=== PATIENT | female | born 1995 | race Caucasian/White ===

== ENCOUNTER 2016-04-13 06:08 | Inpatient (IN) | payer OTHER, MEDICAID ==
[~2016-04-13 06:08] MED LIST: Buffered Lidocaine 1% SYR 3ML* 3 ML/SYR SYRINGE INTRADERM ONE; Famotidine IV* 10 MG/ML 2 ML (20 mg) IV ONE
[2016-04-13] MEDS ORDERED: ceFOXitin 2 GM IVPREMIX* 2 GM/50 ML BAG ONE (06:57)
[2016-04-13] MEDS: Sodium Citrate/Citric Acid* 15 ML UDC PO ONE ×2 (07:02→11:41)
[2016-04-13] MEDS ORDERED: Phenylephrine IV* 40 MCG/ML 10 ML SYRINGE ONE (07:43)
[2016-04-13] MEDS ORDERED: Dexamethasone IV* 4 MG/ML 1 ML (4 MG) ONE (07:44)
[2016-04-13] MEDS ORDERED: OXYTOCIN* 10 UNITS/ML 1 ML VIAL ONE ×2 (07:44→12:33)
[2016-04-13] MEDS ORDERED: Ondansetron INJ* 2 MG/ML VIAL ONE (07:44)
[2016-04-13] MEDS ORDERED: Morphine PF AMP (0.5MG/ML)* 5 MG/10 ML AMP ONE (11:27)
[2016-04-13] MEDS ORDERED: Sodium Citrate/Citric Acid* 15 ML UDC ONE (11:39)
[2016-04-13] MEDS ORDERED: Ondansetron INJ* 2 MG/ML VIAL IV PRN (12:42)
[2016-04-13] MEDS ORDERED: fentaNYL* 50 MCG/ML 2 ML VIAL (100 MCG VIAL) IV PRN (12:42)
[2016-04-13] MEDS ORDERED: Naloxone* 0.4 MG/ML 1 ML VIAL IV PRN (12:42)
[2016-04-13] MEDS ORDERED: Ketorolac INJ* 30 MG/ML 1 ML VIAL IV PRN (12:42)
[2016-04-13] MEDS ORDERED: Nalbuphine* 20 MG/ML 1 ML VIAL IV PRN ×2 (12:42)
[2016-04-13] MEDS ORDERED: oxyCODONE/Acetamin 5/325 MG* TAB PO PRN ×2 (12:42)
[2016-04-13] MEDS: Ibuprofen TAB* 600 MG PO SCH ×2 (15:30→20:28)
[2016-04-13] MEDS ORDERED: Dibucaine 1% 28.35 GM TUBE PR PRN (19:45)
[2016-04-13] MEDS ORDERED: Witch Hazel PAD* JAR TOPICAL PRN (19:45)
[2016-04-13] MEDS ORDERED: Measles, Mumps,Rubella VACC* 0.5 ML/VIAL SUBCUT ONE (19:45)
[2016-04-13] MEDS: Docusate CAP* 100 MG PO SCH (20:27)
[2016-04-13] MEDS: Simethicone TAB* 80 MG TAB.CHEW PO SCH (20:28)
[2016-04-14] MEDS: Ibuprofen TAB* 600 MG PO SCH ×5 (02:45→22:04)
[2016-04-14] MEDS ORDERED: oxyCODONE/Acetamin 5/325 MG* TAB PO PRN (04:00)
--- NOTE | 2016-04-14 04:15 | OP ---
DATE OF OPERATION: 04/13/16 - ROOM #[id number] DATE OF : [birth year] SURGEON: Darrin Dominguez MD NUT ORCHARDIST: Kalani Montes CNM ANESTHESIOLOGIST: Dr. Pride. ANESTHESIA: Spinal. PRE-OP DIAGNOSIS: 39 plus 0 weeks' gestation with breech fetus. POST-OP DIAGNOSIS: 39 plus 0 weeks' gestation with breech fetus. OPERATIVE PROCEDURE: Primary low transverse section. ESTIMATED BLOOD LOSS: 700 cc. URINE OUTPUT: 600 cc. IV FLUIDS: 3300 cc lactated Ringer's. MATERIALS TO LAB: Cord blood. INDICATIONS: This patient was a 20-year-old 1, para 0, who was noted a few weeks ago to have a fetus in the persistent breech presentation. The patient underwent an external cephalic version attempt, but this was unsuccessful. She has been scheduled for a primary section. She was extensively counseled and consent was signed. FINDINGS: Normal-appearing uterus, fallopian tubes, and ovaries. Delivery was productive of a male infant weighing 7 pounds 3 ounces with Apgars of 9 and 9. The infant was in the andres breech presentation. Time of delivery was 12:33. COMPLICATIONS: None. DESCRIPTION OF PROCEDURE: The risks, benefits, and alternatives were described to the patient and informed consent was obtained. The patient was taken to the operating room with IV running where spinal anesthesia was induced and found to be adequate. The patient was prepped and draped in the normal sterile fashion in the dorsal supine position with leftward tilt. A Pfannenstiel skin incision was made with a scalpel and this was carried down to the underlying fascia sharply. The fascia was then scored in the midline with the scalpel. The incision was extended using Amado scissors. The rectus muscles were dissected off the rectus fascia using blunt and sharp dissection. The rectus muscles were in the midline bluntly. The peritoneum was also entered bluntly. A bladder blade was placed. A bladder flap was created sharply using Metzenbaum scissors. A low transverse uterine incision was made with the scalpel. This was carried down slowly and there was no apparent fluid on entering the cavity. The incision was extended with blunt traction. The breech was quite wide, so the skin incision was extended with the scalpel. The breech was then delivered through the incision. With fundal pressure, the body was brought down until the body could be grasped. Each leg was flexed and delivered. The body was then wrapped with a moistened towel. With rotational motions, each shoulder delivered and then both arms were swept down and out. The head was then delivered in a flexed position. The had an excellent tone and cried immediately on delivery. The cord was doubly clamped and cut. The infant was then handed to the awaiting financial aid coordinator. Cord blood was collected. The placenta then delivered with manual extraction. The uterus was then exteriorized and cleared of all clots and debris. The uterine incision was reapproximated using 0 Polysorb in a running-locked fashion. A second layer of imbricating sutures of 0 Polysorb was also placed with good hemostasis. The posterior cul-de-sac was irrigated with saline. The uterus was then returned to the abdomen, and the incision was reinspected and noted to be hemostatic. The peritoneum was closed with 3-0 Polysorb in a running fashion. The fascia was closed with 0 Polysorb in a running fashion. Subcutaneous tissues were reapproximated using 3-0 Polysorb in interrupted stitches. The skin was then closed with 4-0 Monocryl in a subcuticular stitch. Mastisol and Steri-Strips were placed over the incision which was then covered with a sterile bandage. The patient tolerated the procedure well. Sponge, lap, and needle counts were correct x2. [id number] #: [id number] [facility]
[2016-04-14] MEDS: oxyCODONE/Acetamin 5/325 MG* TAB PO PRN ×3 (04:43→18:41)
[2016-04-14 07:22] LABS: Hematocrit 27 % (35-47); Hemoglobin 9.1 g/dl (12.0-16.0); Mean Corpuscular HGB Conc 33 g/dl (31-36); Mean Corpuscular Hemoglobin 31 pg (27-31); Mean Corpuscular Volume 91 fL (80-97); Mean Platelet Volume 12 um3 (7.4-10.4); Red Blood Count 2.98 10^6/ul (4.0-5.4); Red Cell Distribution Width 14 % (10.5-15); White Blood Count 13.9 10^3/ul (3.5-10.8)
[2016-04-14] MEDS: Simethicone TAB* 80 MG TAB.CHEW PO SCH ×4 (08:41→22:04)
[2016-04-14] MEDS: Docusate CAP* 100 MG PO SCH ×3 (08:41→22:04)
[2016-04-14] MEDS ORDERED: Ferrous Gluconate TAB* 324 MG TAB ONE (21:40)
[2016-04-14] MEDS: Ferrous Gluconate TAB* 324 MG TAB PO SCH (22:16)
[2016-04-15] MEDS: Ibuprofen TAB* 600 MG PO SCH ×3 (04:33→18:14)
[2016-04-15] MEDS: Docusate CAP* 100 MG PO SCH ×3 (09:39→22:20)
[2016-04-15] MEDS: Ferrous Gluconate TAB* 324 MG TAB PO SCH ×2 (09:41→22:20)
[2016-04-15] MEDS: Simethicone TAB* 80 MG TAB.CHEW PO SCH ×3 (09:41→18:10)
[2016-04-16] MEDS: Ibuprofen TAB* 600 MG PO SCH ×2 (00:42→09:04)
[2016-04-16] MEDS: oxyCODONE/Acetamin 5/325 MG* TAB PO PRN (01:49)
[2016-04-16 08:17] VITALS: BP 107/61
[2016-04-16] MEDS: Simethicone TAB* 80 MG TAB.CHEW PO SCH (09:04)
[2016-04-16] MEDS: Ferrous Gluconate TAB* 324 MG TAB PO SCH (09:04)
[2016-04-16] MEDS: Docusate CAP* 100 MG PO SCH (09:04)
--- NOTE | 2016-04-16 09:43 | PTEDU ---
Patient Name: LILY NEELY AUBRIELILY Brown selected video: Never Ever Shake a Baby to view on 04/16/2016 at 9:42:45 AM from [facility] [id number]
== END 2016-04-16 11:20 | disposition home or self-care (01) | DRG 540 ==
LOC: MCHOB 06:08
PROVIDERS: ADMIT Obstetrics & Gynecology; ATTEND Obstetrics & Gynecology
PROC: 10907ZC Drainage of Amniotic Fluid, Therapeutic from Products of Conception, Via Natural or Artificial Opening (ICD-10-PCS; 2016-04-13)
PROC: 10D00Z1 Extraction of Products of Conception, Low, Open Approach (ICD-10-PCS; principal; 2016-04-13 07:45)
DX: O32.1XX0 Maternal care for breech presentation, not applicable or unspecified (principal); O99.824 Streptococcus B carrier state complicating childbirth; Z3A.39 39 weeks gestation of pregnancy; Z37.0 Single live birth
CPT/HCPCS: 36415; 85025; 90707; A9270-GY; J0694; J1100; J2300; J2405; J2590

== ENCOUNTER 2018-03-20 16:34 | Emergency (ER) | payer MEDICAID, OTHER ==
--- OUTSIDE RECORDS SUMMARY | 2018-03-20 17:04 | XMS REPORT | Continuity of Care Document ---
:1995 External Reference #:[id number] Author Name VINNY Munoz Address [address] [place] [address], [address] [place] [address] Care Team Providers Name Role Phone Anahi Kirkpatrick M.D. Care Team Information Cloth Worker Unavailable Payers Date Identification Numbers Payment Provider Subscriber Policy Number: [id number] [facility] Arminda Huertas PayID: [id number] [address] [place] [address] Advance Directives Description No Information Available Problems Date Description Provider Status Onset: 01/10/2018 Congenital insufficiency of aortic valve VINNY Munoz Active Onset: 01/10/2018 Malaise and fatigue VINNY Munoz Active Onset: 03/20/2018 Acute pharyngitis VINNY Munoz Active Family History Date Family Member(s) Observation Comments Father 44 Father No Current Problems Mother 44 Mother No Current Problems First Brother Asthma First Brother 21 Second Brother Downs Second Brother 8 Social History Type Date Description Comments Sex Unknown Education Currently attending 1st year of college Marital Status Single lives with [place] and has a one year old. 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 Marital Status Significant Other Lives With Boyfriend Diet Healthy, Well Balanced Tobacco Use Start: Unknown Never Smoked Cigarettes Smoking Status Reviewed: 03/20/18 Never Smoked Cigarettes ETOH Use Denies alcohol use Tobacco Use Start: Unknown Patient has never smoked Currently Active Patient is currently sexually active Condom Use Occasionally Allergies, Adverse Reactions, Alerts Description No Known Drug Allergies Medications Medication Date Status Form Strength Qnty SIG Indications Ordering Provider Amoxicillin 03/20/ Active Tablets 875mg qs take one J02.9 Chichialison Marte2018 tablet ANP twice daily for 10 days Ibuprofen 00/00/ Active Tablets 200mg 1 by mouth Unknown 0000 every 6 hours as needed Pamprin 00/00/ Active Tablets 500-25-15m as Unknown Multi-Symptom 0000 g directed Trinessa (28) 00/ Hx Tablets 0.18/0.215 1 by mouth Unknown 0000 - /0.25 every day 01/09/ mg-35 mcg 2016 Depo-Provera / Hx Suspension 150mg/ml uad Unknown 0000 - 2017 Medications Administered in Office Medication Date Status Form Strength Qnty SIG Indications Ordering Provider Admin Of Administered Injection Injection/B Vaccine,One 018 P Schedule Vaccine Immunizations CPT Code Status Date Vaccine Lot # [id number] Given 01/10/2018 Flucelvax Quad, 0.5mL, [facility] [address]-02 [id number] Given 03/14/2016 Fluvirin 0.5 ML,[facility] 11387-243-39 [id number] U-Flu Given Unknown Influenza,Unspecified Vital Signs Date Vital Result Comment 03/20/2018 10:33am Weight 169.00 lb Height 65 inches 5'5" BP Systolic 118 mmHg BP Diastolic 78 mmHg Body Temperature 100.4 F Heart Rate 120 /min Respiratory Rate 18 /min BMI (Body Mass Index) 28.1 kg/m2 01/10/2018 9:26am Weight 177.00 lb Height 65 inches 5'5" BP Systolic 122 mmHg BP Diastolic 82 mmHg Body Temperature 98.5 F Heart Rate 100 /min O2 % BldC Oximetry 99 % At rest, Room Air BMI (Body Mass Index) 29.5 kg/m2 06/22/2017 2:45pm Weight 171.00 lb Height 65 inches 5'5" BP Systolic 130 mmHg BP Diastolic 70 mmHg Heart Rate 74 /min Respiratory Rate 16 /min BMI (Body Mass Index) 28.5 kg/m2 01/09/2017 9:07am Weight 171.00 lb Height 65 inches 5'5" BP Systolic 110 mmHg BP Diastolic 70 mmHg Heart Rate 76 /min Respiratory Rate 18 /min BMI (Body Mass Index) 28.5 kg/m2 03/14/2016 10:13am Weight 162.00 lb 8 mnths Height 65 inches 5'5" BP Systolic 120 mmHg BP Diastolic 76 mmHg Heart Rate 82 /min Respiratory Rate 16 /min BMI (Body Mass Index) 27.0 kg/m2 02/22/2015 3:13pm Weight 143.12 lb Height 65 inches 5'5" BP Systolic 98 mmHg BP Diastolic 64 mmHg Body Temperature 98.0 F Heart Rate 60 /min manual Respiratory Rate 16 /min BMI (Body Mass Index) 23.8 kg/m2 Results Test Date Facility Test Result H/L Range Note Comprehensive Panel 01/10/2018 [facility] Sodium 138 mmol/L 136-[address] [place] [address] [phone] Potassium 4.4 mmol/L 3.5-5.2 Chloride 105 mmol/L 100-108 Co2 25 mmol/L 21-32 Glucose 81 mg/dL 70-100 BUN 8 mg/dL 7-21 Creatinine 0.7 mg/dL 0.6-1.3 1 Calcium 9.8 mg/dL 8.5-10.8 GFR >60 T Bili 0.4 mg/dL 0.0-1.2 T Protein 8.3 gm/dL High 6.4-8.2 Albumin 4.8 gm/dL 3.4-4.8 Alk Phos 90 U/L 40-150 Alt (SGPT) 21 U/L 0-55 Ast (Sgot) 18 U/L 5-37 Laboratory test 01/10/2018 [facility] A1c 5.1 % 4.8-6.[address] [place] [address] [phone] Iron Saturation 01/10/2018 [facility] Iron 75 g/dL 50- [address] [place] [address] [phone] Uibc 277 g/dL 112-346 Iron Saturation 21 % Low 22-55 CBC W/Auto Differential 01/10/2018 [facility] WBC 8.9 K/uL 4.8-10.[address] [place] [address] 13495 [phone] RBC 4.47 M/uL 4.20-5.40 Hemoglobin 13.4 gm/dL 12.0-16.0 Hematocrit 40.5 % 36.0-48.0 MCV 90.6 fL 80.0-100.0 MCHC 33.1 % 30.0-36.5 MCH 29.9 pg 27.0-34.0 RDW 11.7 % 11.0-15.0 Platelet 230 K/uL 130-450 MPV 9.2 fL 6.0-12.0 NE% 61 % 37-80 Ly% 30 % 10-50 Mo% 9 % 0-12 Eo% 1 % <=8 Ba% 0 % <=3 NE# 5.4 K/uL 1.8-8.6 Lymph# 2.6 K/uL 0.5-5.0 [place]# 0.8 K/uL 0.0-1.3 Eos# 0.1 K/uL 0.0-0.9 Baso# 0.0 K/ul 0.0-0.3 Thy (TSH And Free 06/22/2017 [facility] TSH 1.08 uIU/mL 0.34-4.82 T4) [address] [place] [address] [phone] T4 - Free 0.93 ng/dL 0.77-1.60 Comprehensive Panel 06/22/2017 [facility] Sodium 136 mmol/L 136-[address] [place] [address] 10879 [phone] Potassium 3.7 mmol/L 3.5-5.2 Chloride 104 mmol/L 100-108 Co2 22 mmol/L 21-32 Glucose 82 mg/dL 70-100 BUN 14 mg/dL 7-21 Creatinine 0.8 mg/dL 0.6-1.3 2 Calcium 9.7 mg/dL 8.5-10.8 GFR >60 T Bili 0.4 mg/dL 0.0-1.2 T Protein 7.9 gm/dL 6.4-8.2 Albumin 4.6 gm/dL 3.4-4.8 Alk Phos 96 U/L 40-150 Alt (SGPT) 39 U/L 0-55 Ast (Sgot) 27 U/L 5-37 CBC W/Auto Differential 06/22/2017 [facility] WBC 8.8 K/uL 4.8-10.[address] [place] [address]395 [phone] RBC 4.12 M/uL Low 4.20-5.40 Hemoglobin 12.5 gm/dL 12.0-16.0 Hematocrit 36.8 % 36.0-48.0 MCV 89.4 fL 80.0-100.0 MCHC 34.0 % 30.0-36.5 MCH 30.4 pg 27.0-34.0 RDW 12.2 % 11.0-15.0 Platelet 203 K/uL 130-450 MPV 9.6 fL 6.0-12.0 NE% 61 % 37-80 Ly% 30 % 10-50 Mo% 8 % 0-12 Eo% 1 % <=8 Ba% 1 % <=3 NE# 5.3 K/uL 1.8-8.6 Lymph# 2.6 K/uL 0.5-5.0 [place]# 0.7 K/uL 0.0-1.3 Eos# 0.1 K/uL 0.0-0.9 Baso# 0.0 K/ul 0.0-0.3 1 Normal Kidney Function or Mild Disease - GFR >OR=60 Chronic Kidney Disease - GFR 15-59 Renal Failure - GFR < 15 GFR not calculated on patients under 18 years of age. 2 Normal Kidney Function or Mild Disease - GFR >OR=60 Chronic Kidney Disease - GFR 15-59 Renal Failure - GFR < 15 GFR not calculated on patients under 18 years of age. Procedures Description No Information Available Encounters Type Date Location Provider Dx Diagnosis Office Visit 01/10/2018 Main Office VINNY Munoz Q23.1 Congenital insufficiency 9:00a of aortic valve R53.1 Weakness Office Visit 06/22/2017 2:45p Main Office Anahi Kirkpatrick, R63.5 Abnormal weight M.D. gain R53.83 Other fatigue Z30.09 Encounter for ot general coun and advice on contraception Office Visit 01/09/2017 9:20a Main Office Angie Wright, R22.42 Localized RN, WATERSHED COORDINATOR swelling, mass and lump, left lower limb Office Visit 03/14/2016 10:00a Main Office Anahi Kirkpatrick Z00.00 Encntr for general M.D. adult medical exam w/o abnormal findings Office Visit 02/22/2015 3:15p Main Office Anahi Kirkpatrick Z00.00 Encntr for general M.D. adult medical exam w/o abnormal findings Plan of Treatment 03/20/2018 - VINNY MunozJ02.9 Acute pharyngitis, unspecifiedNew Medication: Amoxicillin 875 mg - take one tablet twice daily for 10 daysComments:take medications as prescribed, drink plenty of fluids. Seek immediate medical attention if condition worsens, ie. increased shortness of breathFollow up: January 2019 for annual visit.Z71.3 Dietary counseling and surveillanceComments :Given dietary counseling and appointment with cpo.
[2018-03-20] MEDS ORDERED: NS 0.9% 1000 ML** 1,000 ML IV ONE ×2 (18:11→19:47)
[2018-03-20 18:50] LABS: ABS Basophils 0 10^3/ul (0-0.2); ABS Eosinophils 0 10^3/ul (0-0.6); ABS Lymphocytes 1.2 10^3/ul (1.0-4.8); ABS Monocytes 0.9 10^3/ul (0-0.8); ABS Neutrophils 6.9 10^3/ul (1.5-7.7); ABS Nucleated RBC 0 10^3/ul; Eosinophil % 0 %; Hematocrit 39 % (35-47); Lymphocyte % 13.1 %; Mean Corpuscular HGB Conc 34 g/dl (31-36); Mean Corpuscular Hemoglobin 30 pg (27-31); Mean Corpuscular Volume 89 fL (80-97); Mean Platelet Volume 10.1 fL (7.4-10.4); Nucleated Red Blood Cells % 0; Platelet Count 170 10^3/ul (150-450); Red Blood Count 4.31 10^6/ul (4.00-5.40); Red Cell Distribution Width 14 % (10.5-15)
--- NOTE | 2018-03-20 18:58 | ED ---
Throat Pain/Nasal Congestion - HPI Summary HPI Summary: 22-year-old female presents with 2 day history of fever, chills, sore throat, and mild shortness of breath with exertion. Symptoms associated with some mild nasal congestion. Patient reports that her child was diagnosed 2 weeks ago with flu. She was evaluated by her primary care provider earlier today and was noted to have a mildly elevated heart rate. A rapid strep test was performed and patient reports was negative. Patient states that she was not tested for flu. Denies ear pain, dysphagia, drooling, chest pain, palpitations, cough, wheezing, abdominal pain, nausea, vomiting, or diarrhea. - History of Current Complaint Chief Complaint: EDThroatPain Time Seen by Provider: 03/20/18 17:49 Hx Obtained From: Patient - Allergies/Home Medications Allergies/Adverse Reactions: Allergies Allergy/AdvReac Type Severity Reaction Status Date / Time No Known Allergies Allergy Verified 03/20/18 18:07 Home Medications: Home Medications NK [No Home Medications Reported] 03/20/18 [History Confirmed 03/20/18] PMH/Surg Hx/FS Hx/Imm Hx Previously Healthy: Yes Endocrine/Hematology History: Denies: Hx Diabetes, Hx Thyroid Disease Cardiovascular History: Reports: Hx Valvular Heart Disease - bicuspid aortic valve Denies: Hx Hypertension Respiratory History: Denies: Hx Asthma History: Denies: Hx Kidney Infection, Other Problems/Disorders Psychiatric History: Denies: Hx Anxiety, Hx Depression, Other Psychiatric Issues/Disorders Infectious Disease History: No Infectious Disease History: Denies: Traveled Outside the [place] in Last 30 Days - Social History Alcohol Use: Occasionally Alcohol Amount: admits to drinking 2-3 beers/week prior to . Quit w/ . Substance Use Type: Reports: None Smoking Status (MU): Never Smoked Tobacco Have You Smoked in the Last Year: No Review of Systems Positive: Fever, Chills, Fatigue Negative: Drainage, Erythema Positive: Sore Throat. Negative: Ear Ache, Nasal Discharge Negative: Palpitations, Chest Pain Positive: Shortness Of Breath. Negative: Cough Negative: Abdominal Pain, Vomiting, Diarrhea, Nausea Positive: no symptoms reported Musculoskeletal: Negative Skin: Negative Neurological: Negative All Other Systems Reviewed And Are Negative: Yes Physical Exam - Summary Physical Exam Summary: GENERAL APPEARANCE: Well developed, well nourished, alert and cooperative, and appears to be in no acute distress. EYES: Conjunctiva clear. No discharge. Vision is grossly intact. EARS: External auditory canals and tympanic membranes clear, hearing grossly intact. NOSE: Mild nasal congestion. No nasal discharge. THROAT: Pharyngeal erythema. 2+ tonsils with exudate. Uvula midline. Airway patent. Oral cavity normal. Teeth and gingiva in good general condition. NECK: Neck supple. Anterior cervical lymphadenopathy with mild tenderness. CARDIAC: Normal S1 and S2. No S3, S4 or murmurs. Rhythm is regular. There is no peripheral edema, cyanosis or pallor. Extremities are warm and well perfused. Capillary refill is less than 2 seconds. LUNGS: Clear to auscultation without rales, rhonchi, wheezing or diminished breath sounds. ABDOMEN: Positive bowel sounds. Soft, nondistended, nontender. No guarding or rebound. No masses or hepatosplenomegally. MUSKULOSKELETAL: ROM intact to all extremities. No joint erythema or tenderness. Normal muscular development. Normal gait. SKIN: Skin normal color, texture and turgor with no lesions or eruptions. Triage Information Reviewed: Yes Vital Signs On Initial Exam: Initial Vitals Temp Pulse Resp BP Pulse Ox 99.7 F 125 18 131/86 98 03/20/18 16:47 03/20/18 16:47 03/20/18 16:47 03/20/18 16:47 03/20/18 16:47 Vital Signs Reviewed: Yes Diagnostics - Vital Signs Vital Signs Temp Pulse Resp BP Pulse Ox 03/20/18 16:47 99.7 F 125 18 131/86 98 - Laboratory Lab Results: Lab Results 03/20/18 Range/Units 18:39 WBC 9.0 (3.5-10.8) 10^3/ul RBC 4.31 (4.00-5.40) 10^6/ul Hgb 13.0 (12.0-16.0) g/dl Hct 39 (35-47) % MCV 89 (80-97) fL MCH 30 (27-31) pg MCHC 34 (31-36) g/dl RDW 14 (10.5-15) % Plt Count 170 (150-450) 10^3/ul MPV 10.1 (7.4-10.4) fL Neut % (Auto) 76.4 % Lymph % (Auto) 13.1 % [place] % (Auto) 10.3 % Eos % (Auto) 0 % Baso % (Auto) 0.2 % Absolute Neuts (auto) 6.9 (1.5-7.7) 10^3/ul Absolute Lymphs (auto) 1.2 (1.0-4.8) 10^3/ul Absolute Monos (auto) 0.9 H (0-0.8) 10^3/ul Absolute Eos (auto) 0 (0-0.6) 10^3/ul Absolute Basos (auto) 0 (0-0.2) 10^3/ul Absolute Nucleated RBC 0 10^3/ul Nucleated RBC % 0 Result Diagrams: 03/20/18 18:39 Lab Statement: Any lab studies that have been ordered have been reviewed, and results considered in the medical decision making process. - EKG No standard instances Cardiac Rate: Tachycardia - Rate 103 EKG Rhythm: Sinus Tachycardia ST Segment: Normal Summary of EKG Findings: Sinus tachycardia at rate of 103. No ectopy, SHYAM. No previous for comparison. Re-Evaluation - Re-Evaluation First Eval Re-Evaluation Time: 19:45 Change: Unchanged Comment: Patient reporting no change in her symptoms. She has completed 1 liter of IVF and remains mildly tachycardic otherwise VSS. CBC normal. Rapid strep and flu are negative. Her UA shows 2+ protein, 1+ ketones, 2+ RBC, and + urobilinogen which likely represents some mild dehydration and her decreased PO intake the past few days. Will give her a second liter of fluid and a dose of ketoralac 15 mg IV and continue to monitor at this time but plan is to discharge home. EENT Course/Dx - Course Course Of Treatment: 22-year-old female presents with 2 day history of fever, chills, sore throat, and mild shortness of breath with exertion. Symptoms associated with some mild nasal congestion. Patient reports that her child was diagnosed 2 weeks ago with flu. She was evaluated by her primary care provider earlier today and was noted to have a mildly elevated heart rate. A rapid strep test was performed and patient reports was negative. Patient states that she was not tested for flu. Denies ear pain, dysphagia, drooling, chest pain, palpitations, cough, wheezing, abdominal pain, nausea, vomiting, or diarrhea. Patient was afebrile at triage with tachycardia rate of 125 and otherwise stable vital signs. Exam revealed together to female in no acute distress with some mild nasal congestion, pharyngeal erythema, 2+ tonsils with exudate, anterior cervical lymphadenopathy, and otherwise unremarkable exam. Rapid strep negative. Rapid flu negative. Patient received a total of 2 L of normal saline, ketorolac 15 mg IV, and dexamethasone 8 mg IV. Her heart rate returned to normal parameters, blood pressure remained stable, and she had mild improvement in her sore throat. I'm recommending symptomatic treatment for a viral pharyngitis. She is to follow-up with her primary care provider in 3 days for recheck of her symptoms. Anticipatory guidance and warning symptoms were reviewed with the patient. She verbalizes understanding and agrees with plan of care. - Differential Diagnoses Differential Diagnoses: Influenza, Pharyngitis, Sinusitis, Tonsilitis, Other - Peritonsilar abscess, mononeucleosis - Diagnoses Provider Diagnoses: Acute viral pharyngitis Is Visit Related: No Discharge - Sign-Out/Discharge Documenting (check all that apply): Patient Departure Patient Received Moderate/Deep Sedation with Procedure: No - Discharge Plan Condition: Stable Disposition: HOME Patient Education Materials: Pharyngitis (ED) Referrals: No Primary Care Phys,NOPCP [Primary Care Provider] - Additional Instructions: Your rapid strep test and rapid flu test were negative. Your symptoms are likely from a viral infection. Viral infections do not respond to antibiotics and are limited to the treatment of symptoms. Viral infections typically run their course in 7-10 days. You were given a dose of an anti-inflammatory pain medication called ketoralac ( Toradol) for your sore throat. Do not take any other anti-inflammatory medications such as ibuprofen (Advil, Motrin), naproxen (Aleve), or aspirin for at least 8 hours after receiving this medication. You may take acetaminophen ( Tylenol) according to directions if needed. You were also given a dose of a steroid called dexamethasone to help with the pain and swelling. This will stay in your system for up to 3 days. Drink plenty of fluids to avoid dehydration especially if you are running any fever. Use salt water gargles several times a day. Take over the counter acetaminophen (Tylenol) or ibuprofen (Advil, Motrin) according to directions as needed for pain or fever. You may also use Chloraseptic spray or Cepacol lonzenges according to directions which contain a numbing medication and can provide some temporary relief from your sore throat. Follow up with your primary care provider withing 3 days for a recheck of your symptoms. Return to the emergency room if you have fever greater than 100.5 F despite taking acetaminophen or ibuprofen, are unable to swallow or develop drooling, are unable to open your mouth fully, are unable to eat or drink, have pain that is not relieved with over the counter pain medication, or have any difficulty breathing. - Billing Disposition and Condition Condition: STABLE Disposition: Home
[2018-03-20 19:00] LABS: Urine Appearance Cloudy; Urine Bacteria Absent (Absent); Urine Bilirubin Negative (Negative); Urine Blood Negative (Negative); Urine Color Amber; Urine Glucose Negative (Negative); Urine Ketones 1+ (Negative); Urine Nitrite Negative (Negative); Urine Protein 2+(100 mg/dL) (Negative); Urine Red Blood Cell 2+(6-10/hpf) (Absent); Urine Squamous Epithelial Cell Present (Absent); Urine Urobilinogen Positive (Negative); Urine White Blood Cell Trace(0-5/hpf) (Absent)
[2018-03-20 19:05] LABS: Influenza A Molecular NEGATIVE (Negative); Influenza B Molecular NEGATIVE (Negative)
[2018-03-20] MEDS ORDERED: Ketorolac INJ* 30 MG/ML 1 ML VIAL IV PUSH ONE (19:47)
[2018-03-20 20:31] VITALS: BP 108/65
[2018-03-20] MEDS ORDERED: Dexamethasone IV* 4 MG/ML 1 ML (4 MG) IV SLOW PU ONE (20:32)
== END 2018-03-20 20:58 | disposition home or self-care (01) ==
LOC: ED 16:34
DX: J02.8 Acute pharyngitis due to other specified organisms (principal); R50.9 Fever, unspecified; R06.02 Shortness of breath; R00.0 Tachycardia, unspecified
CPT/HCPCS: 36415; 81003; 81015; 84702; 85025; 87086; 87651; 93005; 96374; 96375; 99284; J1100; J1885